=== PATIENT | male | born 1945 | race Caucasian/White ===

== ENCOUNTER → 2022-06-05 | Outpatient (CLI) | payer MEDICARE ==
[~2022-06-05] MED LIST: IOPAMIDOL 370 MG/ML 100 ML INFUS..BTL INJ ONE
[2022-06-05 09:08] LABS: CREATININE, SERUM 1.07 mg/dL (0.72-1.25)
== END ==
LOC: CT 08:05
PROVIDERS: ATTEND Internal Medicine Hematology & Oncology
DX: C23 Malignant neoplasm of gallbladder (principal)
CPT/HCPCS: 36415; 71260; 74177; 82565; 84520; Q9967